=== PATIENT | male | born 1955 | race Caucasian/White ===

== ENCOUNTER → 2018-07-25 07:58 | Outpatient (CLI) | payer OTHER, SELFPAY ==
[2018-07-25 10:48] LABS: Alanine Aminotransferase 59 IU/L (21-72); Albumin 4.1 g/dL (3.5-5.0); Albumin Globulin Ratio 1.5 (1.0-2.8); Alkaline Phosphatase 70 U/L (38-126); Aspartate Aminotransferase 34 IU/L (17-59); Bilirubin Total 0.5 mg/dL (0.2-1.3); Blood Urea Nitrogen 21 mg/dL (9-20); Calcium 8.9 mg/dL (8.4-10.2); Carbon Dioxide 29 mmol/L (22-32); Chloride 102 mmol/L (98-107); Cholesterol 182 mg/dL (140-199); Estimated Glomerular Filt Rate > 60.0 mL/min (>60); Globulin 2.7 g/dL (1.7-4.1); Glucose 104 mg/dL (80-110); HDL Cholesterol 64 mg/dL (40-60); LDL Cholesterol Calculated 105 mg/dL (<100); Sodium 141 mmol/L (137-145); Total Protein 6.8 g/dL (6.3-8.2); Triglycerides 66 mg/dL (35-150)
[2018-07-25 11:37] LABS: HEMOLYSIS 27 (0-50); Prostate Specific Antigen Scrn 0.601 ng/mL (0.1-4.0)
== END ==
PROVIDERS: PCP Internal Medicine; Visit Provider Internal Medicine
DX: E29.1 Testicular hypofunction (principal); M15.0 Primary generalized (osteo)arthritis
CPT/HCPCS: 36415; 80053; 80061; G0103

== ENCOUNTER → 2019-02-16 11:16 | Outpatient (CLI) | payer OTHER, SELFPAY ==
[2019-02-16 13:00] LABS: Add Manual Diff / Slide Review NO; Basophils Absolute Auto 100 /uL (0-100); Basophils Percent Auto 1.3 % (0-2); Eosinophils Absolute Auto 300 /uL (0-450); Eosinophils Percent Auto 4.8 % (2-4); Hematocrit 43.7 % (41-53); Hemoglobin 14.9 g/dL (13.5-17.5); Lymphocytes Absolute Auto 2000 /uL (1100-4500); Lymphocytes Percent Auto 28.1 % (25-40); Mean Corpuscular HGB Conc 34.1 % (30-36); Mean Corpuscular Hemoglobin 32.5 PG (26-34); Mean Corpuscular Volume 95.4 fL (80-100); Monocytes Absolute Auto 800 /uL (0-900); Monocytes Percent Auto 10.6 % (3-14); Neutrophils Absolute Auto 3900 /uL (1500-7000); Neutrophils Percent Auto 55.2 % (50-75); Platelet Count 213 X10^3/uL (150-400); Red Blood Cell Count 4.58 X10^6/uL (4.5-5.9); Red Cell Distribution Width 14.4 % (11.6-14.8); White Blood Cell Count 7.1 X10^3/uL (4.5-11.0)
[2019-02-16 13:11] LABS: HEMOLYSIS < 15 (0-50); Iron 102 ug/dL (49-181)
[2019-02-16 13:21] LABS: Percent Iron Saturation 28 % (20-50); Total Iron Binding Capacity 361 ug/dL (261-462); Transferrin 275 mg/dL (206-381)
== END ==
PROVIDERS: PCP Internal Medicine; Visit Provider Internal Medicine
DX: K62.5 Hemorrhage of anus and rectum (principal)
CPT/HCPCS: 36415; 83540; 83550; 85025

== ENCOUNTER → 2019-03-17 11:54 | Outpatient (CLI) | payer OTHER, SELFPAY ==
--- NOTE | 2019-03-17 14:00 | DIET.PN ---
Dietary Progress Note Assessment: HT: WT: BMI: Labs: Nutrition Diagnosis: Interventions: Monitoring/Evaluations:
--- NOTE | 2019-03-17 14:00 | DIET.PN ---
Dietary Progress Note ASSESS:???63 yom referred for obesity. Pt reports he has met with a dietitian in the past with positive results. Pt recently living with his sister, and reports significant dietary changes. He has tried a low fat diet and cutting down on red meat. States he is looking for overall balance. Current diet high in breads, pastas, and likes sweets. Frequently dines out for lunch. Physical activity has significantly declined as he is now retired and has an Achilles injury. He has a stationary bike at home which he rarely uses. Admits he has just gotten out of a routine. No specific labs of concern, but patient is aware he needs to follow a healthier lifestyle to maintain control of his health. ? LABS: Per pt report:? LDL: 105 HDL: 64 ? MEDS:?? n/a ? DIET: Per 24-hour recall:? B: 2-3 eggs, breakfast meat, toast/bagels/waffles L: Sardines (in oil) on sourdough w/ peaches D: Chicken stir chester w/ 1 cup rice ? Weight: 349 lb Ht:? 74 in BMI: 44.8 ? Exercise:? none at this time. NUTRITION DX 1. Overweight/Obesity related to excessive energy intake, food- and nutrition-related knowledge deficit as evidenced by pt report, overconsumption of high-fat and/or energy dense foods, lack of physical activity, BMI more than normative standards for age and sex (obese class III).? INTERVENTION(s): 1. Discussed caloric/macronutrient needs for ht, wt, activity level and weight loss. Created calorie goal of 2200 (500 calorie deficit for 1 lb/wk weight loss). 2. Discussed the effect of carbohydrates/protein/fat on blood sugar and weight control.? Stressed importance of consistent carbohydrate intake at each meal and provided instructions for recommended servings/portions of carbohydrates/protein per meal. Provided pt with educational material. 3. Reviewed carbohydrate counting and measuring carbohydrate content via servings sizes and reading nutrition labels.? Provided handouts.?? 4. Discussed the difference between simple versus complex carbohydrates and the effect of fiber on blood sugar and cholesterol control.? Discussed various methods to increase fiber content in diet. 5. Stressed importance of meal timing and not going >4-5 hours between meals. Encouraged utilizing the plate method to ensure meals are coming from all food sources. 6. Discussed importance of food preparation to encourage healthy eating, portion control, and prevent hunger/over snacking. 7. Discussed healthy weight loss goals of 1-2lbs per week through diet and exercise.? Pt agreeable to keeping a daily food record including portions. Goals: 1. Pt would like to lose 20 lbs (~5%) body weight in the next 1-2 months through dietary changes. 2. Pt agreed to keep a food record to discuss with RD at follow up appt. 3. Pt will look into getting a gym membership to work with a strainer tender weekly. MONITOR/EVALUATE: Anticipate good compliance.? Nutrition follow-up scheduled for 2 weeks to review food record, monitor weight, and protein/fats and physical activity plan.
== END ==
PROVIDERS: PCP Internal Medicine; Visit Provider Internal Medicine
DX: E66.9 Obesity, unspecified (principal)
CPT/HCPCS: 97802

== ENCOUNTER → 2019-04-01 10:50 | Outpatient (CLI) | payer OTHER, SELFPAY ==
--- NOTE | 2019-04-01 16:19 | DIET.PN ---
Dietary Progress Note Assessment: 63 yom seen for dietary f/u for obesity and weight loss. Pt has been keeping a food record for the past few weeks using my fitness pal to calculate nutrients. He reports it has made him much more aware of his portions and what he is taking in; however it has been challenging keeping track. He has made several changes to dietary habits including switching to egg whites over whole eggs, increasing vegetables, using turkey and chicken over beef, switched to low fat/plain french yogurt. He has not started exercising yet, but plans to sign up for a gym membership this week to start meeting with a development trainer. HT: 74in WT: 343lb (down from 349) BMI: 44 Labs: LDL: 105 HDL: 64 Nutrition Diagnosis: Overweight/Obesity r/t excessive energy intake, food- and nutrition- related knowledge deficit aeb pt report, over-consumption of high-fat and/or energy dense foods, lack of physical activity, BMI more than normative standards for age and sex (obese class III). Interventions: 1. Reviewed food diary. Recommended pt continue to work on staying within recommended calories and be consistent with CHO intake. 2. Discussed ways to make healthier choices when dining out. 3. Discussed importance of PA. Pt will get a gym membership before next visit. 4. Pt would like to bring sister in for next appt for support and so she can understand pt nutritional needs. Monitoring/Evaluations: Nutrition F/U scheduled for 2 weeks to review food record, monitor weight, and discuss pro/fat; this not that.
== END ==
PROVIDERS: PCP Internal Medicine; Visit Provider Internal Medicine
DX: E66.9 Obesity, unspecified (principal)
CPT/HCPCS: 97803

== ENCOUNTER → 2019-04-15 10:57 | Outpatient (CLI) | payer OTHER, SELFPAY ==
--- NOTE | 2019-04-15 16:37 | DIET.PN ---
Dietary Progress Note Assessment: Pt seen for 2nd dietary f/u for obesity and weight management. He is joined today by his sister as she does all of the meal preparation. Most concerns involved portions and maintaining recommended calorie intake. Pt recently purchased protein nutritional supplement to begin making vegetable dense smoothies which was discussed at our prior appt. He joined the local fitness center and has committed to meeting with her 2x/wk for the next 6 mo while biking every other day in between. He recently had new labs done which were reviewed and discussed. HT: 74 WT:341 (original 349) BMI: 43.8 Labs: (03/24/19) Gluc: 97 TC: 200 T LDL: 128 HDL: 60 Nutrition Diagnosis: Overweigh/Obesity r/t excessive energy intake, food- and nutrition-related knowledge deficit aeb pt report, over consumption of high-fat and/or energy dense foods, lack of physical activity, BMI more than normative standards for age and sex (obese class III). Interventions: 1. Review calorie and macronutrient goals and materials from previous appts with sister. 2. Discussed protein goal. Reviewed animal vs plant based options as well as low, med, and high fat meats. 3. Reviewed fats effect on glucose, weight, heart disease, and cholesterol. Discussed saturated vs. unsaturated fats. 4. Reviewed sugar subs, sodium, grocery shopping guidelines, eating away from home, and health claims. Monitoring/Evaluations: F/u scheduled for 1 mo post endoscopy to review previous topics, questions/concerns, monitor weight.
== END ==
PROVIDERS: PCP Internal Medicine; Visit Provider Internal Medicine
DX: E66.9 Obesity, unspecified (principal)
CPT/HCPCS: 97803

== ENCOUNTER → 2019-04-23 10:15 | Outpatient (CLI) | payer OTHER, SELFPAY ==
--- NOTE | 2019-04-23 | DI.RAD.S_ITS ---
PROCEDURE: XR CALCANEOUS RT MIN 2V INDICATIONS: ACHILLES TENDONITIS, RIGHT TECHNIQUE: Two views of the calcaneus were acquired. COMPARISON: None. FINDINGS: Bones: No fractures or dislocations. No suspicious bony lesions. Plantar and posterior calcaneal spurring. Tibiotalar degenerative joint disease. Diffuse hindfoot degenerative subchondral sclerosis and spurring Soft tissues: No suspicious calcifications. Achilles tendon appears mildly thickened. IMPRESSION: Prominent posterior and plantar calcaneal spurring. Diffuse hindfoot joint degeneration. Dictated by: Lewis Ferguson M.D. on 04/23/2019 at 11:35 Approved by: Lewis Ferguson M.D. on 04/23/2019 at 11:36
--- NOTE | 2019-04-23 | DI.RAD.S_ITS ---
PROCEDURE: XR ANKLE RT MIN 3V INDICATIONS: ACHILLES TENDONITIS, RIGHT TECHNIQUE: 3 views of the ankle were acquired. COMPARISON: None. FINDINGS: Bones: No fractures or dislocations. Ankle mortise is normally aligned. No suspicious bony lesions. Posterior and plantar calcaneal spurring. No pes planus. Tibiotalar degenerative changes Soft tissues: No tibiotalar joint effusion. Achilles tendon appears normal. IMPRESSION: No pes planus. Prominent posterior and plantar calcaneal spurring. Diffuse hindfoot joint degeneration. Dictated by: Lewis Ferguson M.D. on 04/23/2019 at 11:36 Approved by: Lewis Ferguson M.D. on 04/23/2019 at 11:37
== END ==
PROVIDERS: Family Provider Internal Medicine; PCP Internal Medicine; Visit Provider Podiatrist
DX: M76.61 Achilles tendinitis, right leg (principal); M77.31 Calcaneal spur, right foot; M19.071 Primary osteoarthritis, right ankle and foot
CPT/HCPCS: 73610; 73650

== ENCOUNTER 2019-05-06 13:22 | Day surgery (SDC) | payer OTHER, SELFPAY ==
--- NOTE | 2019-05-06 | PATH_ITS ---
[facility] Accession Number: [id number] . 01 Material submitted: . PART A: colon - DESCENDING COLON POLYP PART B: colon - SIGMOID COLON POLYP . 02 Diagnosis: A. Biopsy, Polyp Descending Colon: Tubular adenoma involving single biopsy fragment. . B. Biopsy, Sigmoid Colon Polyp: Hyperplastic polyp. MRV/05/08/2019 . 02 Electronically signed: . Hernan Alva MD, Pathologist NPI- [id number] . 01 Gross description: . Part A: DESCENDING COLON POLYP: Received in formalin are multiple fragment(s) of gee, soft tissue measuring 0.2 x 0.1 x 0.1 cm in aggregate submitted entirely in 1 cassette(s) Part B: SIGMOID COLON POLYP: Received in formalin is 1 fragment(s) of gee, soft tissue measuring 0.3 x 0.3 x 0.3 cm submitted entirely in 1 cassette(s) /CKI /CKI . 02 Pathologist provided ICD-10: D12.4 . 02 CPT . 861244, [id number] Performed at: 01 [facility] [address] [facility], [place], [place] [id number] MD Lonnie Castellanos MD Phone: [phone] Performed at: 02 [facility] [address] [place], [place] [id number] MD Ksenia Camilo MD Phone: [phone]
[2019-05-06 14:06] VITALS: BP 140/86; PULSE 79; RESP 16; TEMP 36.1; O2SAT 97; BMI 41.5
[2019-05-06] MEDS: SODIUM CHLORIDE 0.9% 1,000 ML 42 ML IV (14:17)
--- NOTE | 2019-05-06 14:50 | P.HP_ITS ---
History of Present Illness History of Present Illness Date Patient Seen: 05/06/19 Time Patient Seen: 14:50 Chief complaint: [id number] Narrative: Possible history of Kim's esophagus and need for colorectal cancer screening due to father with colon cancer. Patient History Medical History (Updated 05/06/19 @ 14:13 by Jess Woodall, RN) Abdominal pain (Acute) Achilles tendonosis of right lower extremity (Acute) Arthritis (Acute) Barretts esophagus (Acute) BPH (benign prostatic hyperplasia) (Acute) GERD (gastroesophageal reflux disease) (Acute) Hematochezia (Acute) Joint pain (Acute) Obese (Acute) Vertigo (Acute) Weak urinary stream (Acute) Surgical History (Updated 05/06/19 @ 13:41 by Jess Woodall RN) H/O knee surgery (Acute) History of colonoscopy (Acute ~2011) Social History household members: family Family & Social History Social History: household members family Meds Home Medications and Allergies Home Medications Medication Instructions Recorded Confirmed Type ascorbic acid (vitamin C) [Vitamin 1,000 mg PO DAILY 05/06/19 05/06/19 History C] diclofenac sodium [Voltaren] g TOPICAL QID 05/06/19 History finasteride 5 mg PO DAILY 05/06/19 05/06/19 History vxfoqywgqbh-rkymw-qms-vit C-Mn 2 tab PO DAILY 05/06/19 05/06/19 History meloxicam 15 mg PO DAILY PRN 05/06/19 05/06/19 History omeprazole 20 mg PO DAILY 05/06/19 05/06/19 History tamsulosin 0.4 mg PO DAILY 05/06/19 05/06/19 History Allergies Allergy/AdvReac Type Severity Reaction Status Date / Time penicillin V Allergy Severe Unlisted Verified 05/06/19 13:57 sulfadiazine Allergy Severe [place] Verified 05/06/19 13:57 Exam Vital Signs (past 8 hours): - 05/06/19 14:06 Temperature 96.9 F L Pulse Rate 79 Respiratory Rate 16 Blood Pressure 140/86 Pulse Oximetry 97 Oxygen Delivery Method Room Air Narrative Exam Narrative: Oropharynx free of lesions Chest clear to auscultation percussion Cardiac exam reveals no S3 or murmur Assessment & Plan Assessment & Plan narrative: History of Kim's esophagus though with 2- endoscopies after the initial diagnosis. Need to rule out Kim's esophagus in carefully pay attention to the top of the G folds Family history of colon cancer in a first-degree relative need for 5 year follow-up colonoscopy Risks, benefits, alternatives have been explained. Further recommendations will follow with the results of the studies.
--- NOTE | 2019-05-06 15:28 | PM.OP.ENDO ---
Operative Date/Time/Diagnoses Date of procedure: 05/06/19 Time of procedure: 15:28 Pre-op diagnosis: See indication and findings Procedure & Clinicians Study performed: EGD and colonoscopy Same procedure as scheduled: Yes Indications: History of Kim's esophagus though present only on 1st endoscopy with 2 follow-up endoscopy is being negative. Rule out Kim's esophagus. Also need for colorectal cancer screening. Anesthesia assistance necessary due to obesity and airway issues Surgeon: Chris Summers Procedure Notes Procedure in detail: After informed consent was obtained the patient was placed in left lateral decubitus position. The video upper scope was placed into the oropharynx and with the patient's help swallowed into the esophagus. The esophagus, stomach and duodenum were carefully examined. On withdrawal retroflexed view the GE junction was performed. The scope was removed. The patient tolerated procedure well. The patient was then turned and the colonoscope substituted. This was placed in the rectum slowly advanced to the cecum. Preparation was good. On slow withdrawal mucosa was carefully examined. The scope was removed. The patient tolerated the procedure well. Blood loss none Complications none Sedation MAC Findings EGD 1. No evidence of Kim's esophagus. On multiple photos, there are no irregularities above the the top level of the GE folds. 2. Normal stomach 3. Normal duodenal bulb and sweep Colonoscopy 1. Two 3 4 mm descending colon polyps both Jumbo biopsy removed completely 2. 4 mm sessile polyp in the sigmoid colon Jumbo biopsy removed completely 3. Otherwise negative colonoscopy to cecum We will let very know about the pathology results and whether he needs to come back in 5 years. I do think however that he should stop screening for Kim's esophagus his this is now the 3rd negative study. No further follow-up was warranted.
[2019-05-06 15:57] VITALS: BP 119/80; PULSE 70; RESP 16; O2SAT 96
[2019-05-06 16:02] VITALS: BP 118/83; PULSE 62; RESP 16; O2SAT 97
[2019-05-06 16:07] VITALS: BP 113/69; PULSE 65; RESP 16; O2SAT 96
[2019-05-06 16:30] VITALS: BP 125/79; PULSE 64; RESP 17; TEMP 36.3; O2SAT 95
== END 2019-05-06 16:45 | disposition home or self-care (01) ==
PROVIDERS: PCP Internal Medicine; Visit Provider Internal Medicine Gastroenterology
PROC: 0DJ08ZZ Inspection of Upper Intestinal Tract, Via Natural or Artificial Opening Endoscopic (ICD-10-PCS; CPT 43235; principal; 2019-05-06 15:00)
PROC: 0DJD8ZZ Inspection of Lower Intestinal Tract, Via Natural or Artificial Opening Endoscopic (ICD-10-PCS; CPT 45378; 2019-05-06 15:00)
DX: Z12.11 Encounter for screening for malignant neoplasm of colon (principal); Z80.0 Family history of malignant neoplasm of digestive organs; K21.9 Gastro-esophageal reflux disease without esophagitis; N40.0 Benign prostatic hyperplasia without lower urinary tract symptoms; E66.9 Obesity, unspecified; Z68.41 Body mass index [BMI] 40.0-44.9, adult; D12.4 Benign neoplasm of descending colon
CPT/HCPCS: 45380; 43235; J2250; J2704; J3010

== ENCOUNTER → 2019-05-13 10:53 | Outpatient (CLI) | payer OTHER, SELFPAY ==
--- NOTE | 2019-05-13 15:26 | DIET.PN ---
Dietary Progress Note Assessment: Pt seen for 3rd Dietary F/U for obesity and weight management. He has been very consistent with activity and watching his portions, but is disappointed in lack of weight loss. Recent procedure required he follow a low fiber diet for several days. He is finding it challenging to meet his recommended daily fiber intake since then. His biggest concern is translating nutrition education to real life meals. He is much more optimistic about his level of activity and making better choices when dining out. HT: 74 WT: 343 BMI: 44 Nutrition Diagnosis: Overweight/Obesity r/t excessive energy intake, food- and nutrition- related knowledge deficit aeb pt report, over consumption of high-fat and/or energy dense foods, lack of physical activity, BMI more than normative standards for age and sex (Obese class III). Interventions: 1. Discussed in detail importance of fiber, amount needed, and sources. Created list of high fiber foods to consume throughout the day and avoid over-consumption of calorie dense foods. 2. Discussed ways to create meals that include high fiber foods such as vegetable, nuts, and seeds. 3. Explained the effect of exercise in create lean body mass and acute water retention that could effect daily weight. 4. Pt agreed to cut out starch (particularly bagels) for the next 30 days. Monitoring/Evaluations: Monitor weight; provide list of snack/meal ideas that promote nutritionally dense options at reduced calories.
== END ==
PROVIDERS: PCP Internal Medicine; Visit Provider Internal Medicine
DX: E66.9 Obesity, unspecified (principal); Z68.41 Body mass index [BMI] 40.0-44.9, adult
CPT/HCPCS: 97803

== ENCOUNTER → 2019-06-02 10:52 | Outpatient (CLI) | payer OTHER, SELFPAY ==
--- NOTE | 2019-06-02 13:58 | DIET.PN ---
Dietary Progress Note Assessment: Mr Reyez was seen for his 4th dietary F/U for obesity and weight management. He is accompanied by his sister who has several questions regarding recipes and reading food labels as she is the primary cook. Nic continues to increase his vegetable intake and accepted a 30 day challenge to avoid added sugar and enriched starches. He continues to meet with his hardware trainer 1 day/week, but admits he has not been as active as he should on the alternate days which we have discussed in prior appointments. He states he is less concerned with his weight as he is feeling better, less fatigued, and is feeling more positive with his dietary choices. HT: 74 WT: 339 UBW: 349 BMI: 43.5 Nutrition Diagnosis: Overweight/Obesity r/t excessive energy intake aeb pt report, over consumption of high-fat and/or energy dense foods, lack of physical activity, BMI more than normative standards for age and sex (obese class III). Interventions: 1. Reviewed label reading including total carbs, added sugar, fiber, and sat fat. 2. Reviewed important of looking at ingredients including breads made with whole grain/whole wheat rather than enriched flours. 3. Provided list of healthful snacks under 200 della. 4. Discussed intermittent fasting, benefits and challenges, and how to get started. 5. Recommended adding 30 min of cardiovascular or resistant training 3-4 days/week. Monitoring/Evaluations: Monitor weight, challenges with topics previously discussed.
== END ==
PROVIDERS: PCP Internal Medicine; Visit Provider Internal Medicine
DX: E66.9 Obesity, unspecified (principal); Z68.41 Body mass index [BMI] 40.0-44.9, adult
CPT/HCPCS: 97803

== ENCOUNTER → 2019-06-16 14:16 | Outpatient (CLI) | payer OTHER, SELFPAY ==
[2019-06-16 15:36] LABS: Prostate Specific Antigen 0.356 ng/mL (0.10-4.00)
== END ==
PROVIDERS: PCP Internal Medicine; Visit Provider Urology
DX: R97.20 Elevated prostate specific antigen [PSA] (principal)
CPT/HCPCS: 36415; 84153

== ENCOUNTER → 2019-07-08 10:20 | Outpatient (CLI) | payer OTHER, SELFPAY ==
--- NOTE | 2019-07-08 15:40 | DIET.PN ---
Dietary Progress Note Assessment: Mr Serrato was seen for his 5th dietary F/U for obesity and weight management. We continues to avoid most white products, but is starting to add some potatoes and rice back into his diet. He and his sister appear somewhat bored with the vegetables they have been trying to include and may be falling back into some old habits. He has not lost weight, but is happy to report inches lost around his chest and midsection. He is now working with his application trainer 2x/wk, but admits he is not doing any activity outside of that. He complains he is too sore for days after his sessions and his knees are beginning to bother him. He will be leaving for a 2 week vacation over the holidays and is worried about maintaining his weight, dietary changes and activity. HT: 74 WT: 344 UBW: 349 BMI: 44.2 Measurements: Reports 5 lost in waist and 1 around chest Nutrition Diagnosis: Overweight/Obesity r/t excessive energy intake aeb pt report, over consumption of high-fat and/or energy dense foods, lack of physical activity, BMI more than normative standards for age and sex (obese class III). Interventions: 1. Discussed alternative vegetable options to avoid boredom. 2. Reviewed portion sizes of starches/ carbohydrates. Reminded pt these are acceptable in moderate amounts. 3. Discussed holiday eating and ways to prevent over eating. Discussed the hunger scale and listening to when you body is satisfied. 5. Discussed PA. Encourage Nic to add 30 min of cardiovascular 3-4 days/ wk alternating days he does not meet with his application trainer. Discussed barriers and benefits. Pt agrees to ride the bike for 15 min before and after his training sessions at the gym and ride his bike at home for 30 min on alternate days. Monitoring/Evaluations: Monitor weight, challenges with the holidays/being on vacation, topics previously discussed.
== END ==
PROVIDERS: PCP Internal Medicine; Visit Provider Internal Medicine
DX: E66.9 Obesity, unspecified (principal); Z68.41 Body mass index [BMI] 40.0-44.9, adult; Z71.3 Dietary counseling and surveillance
CPT/HCPCS: 97803

== ENCOUNTER → 2019-09-16 10:49 | Outpatient (CLI) | payer OTHER, SELFPAY ==
--- NOTE | 2019-09-16 12:57 | DIET.PN ---
Nutrition Initial Assessment:? ASSESS:???Mr Serrato was seen for his 6th dietary follow up for obesity and weight management. He admits he was reluctant to attend this visit as he did not apply any of our previously discussed nutritional changes over the holidays. He was traveling for nearly 3 weeks and reports eating out every meal. Although we discussed ways to stay on track with eating and exercise, he found this challenging. Since our last visit he has developed neuroma in his foot and is experiencing shoulder pain, which he is attending physical therapy for. Since his return, he has gone back to eating vegetables and grains with lean protein for most meals. He reports difficulty with breakfast foods and continues to experience boredom with choosing healthy side dishes. He has attended the fitness center a few times and plans to start back with his clinical provider trainer in the next week. ? Weight: 342 ? Exercise:? physical therapy; personal financial representative 2x/wk NUTRITION DX 1. Overweight/Obesity related to excessive energy intake, food- and nutrition-related knowledge deficit as evidenced by pt report, overconsumption of high-fat and/or energy dense foods, lack of physical activity, BMI more than normative standards for age and sex (obese class III).? INTERVENTION(s): 1. Reviewed dietary and activity habits over the holidays. Discussed barriers to maintaining eating plan. 2. Discussed breakfast ideas to provide adequate protein and carbohydrate while staying within calorie recommendations. 3. Discussed possibility of signing up for a local [facility]-supported agriculture to provide new ideas on produce to avoid boredom. 4. Discussed barriers to activity. Patient has requested communication between this RD and his clinical provider trainer and PT. Goals: 1. Pt plans to sign up for [facility] to receive local, seasonal produce to help avoid boredom. 2. Pt will go back to limiting starchy foods and sugar sweetened beverages and replace sweets with fruit. MONITOR/EVALUATE: Anticipate good compliance.? Nutrition follow-up scheduled for 6 weeks to monitor weight, food record, and physical activity
== END ==
PROVIDERS: PCP Internal Medicine; Visit Provider Internal Medicine
DX: E66.9 Obesity, unspecified (principal); Z71.3 Dietary counseling and surveillance
CPT/HCPCS: 97803

== ENCOUNTER → 2019-10-27 10:56 | Outpatient (CLI) | payer OTHER, SELFPAY ==
--- NOTE | 2019-10-27 12:32 | DIET.PN ---
Nutrition Initial Assessment:? ASSESS:???Mr. Serrato was seen for his 7th dietary follow up for obesity and weight management. He reports increased activity with improvement in his Achilles and shoulder pain. He continues to meet with his personal service workers 2x/wk and is continuing physical therapy. He continues to struggle with motivation to exercise on alternate days. Since returning from his vacation he has gone back to limiting processed foods and white starches. However continues to dine out several times per week. He has set a goal to follow the 80/20 rule. He presents overall disappointed in not meeting his weight loss goals, but is happy to feel better, move better, and feels confident he is making steps in the right direction. ? Weight: 351 lb Ht:? 74 in BMI: 45 ? Exercise:? physical therapy; personal service workers 2x/wk NUTRITION DX 1. Overweight/Obesity related to excessive energy intake, food- and nutrition-related knowledge deficit as evidenced by pt report, overconsumption of high-fat and/or energy dense foods, lack of physical activity, BMI more than normative standards for age and sex (obese class III).? INTERVENTION(s): 1. Pt will follow the 80/20 rule for making dietary choices. 2. Pt will include 2 extra days of exercise (cardio at the gym) outside of his personal service workers. 3. Pt will request follow up labs to assess health status. MONITOR/EVALUATE: No follow up scheduled at this time
== END ==
PROVIDERS: PCP Internal Medicine; Referring Provider Internal Medicine; Visit Provider Internal Medicine
DX: E66.01 Morbid (severe) obesity due to excess calories (principal); Z68.42 Body mass index [BMI] 45.0-49.9, adult; Z71.3 Dietary counseling and surveillance
CPT/HCPCS: 97803

== ENCOUNTER → 2020-02-08 08:15 | Outpatient (CLI) | payer MEDICARE, OTHER, SELFPAY ==
[2020-02-08 09:14] LABS: Alanine Aminotransferase 44 IU/L (<50); Albumin Globulin Ratio 1.3 (1.0-2.8); Alkaline Phosphatase 72 U/L (38-126); Aspartate Aminotransferase 31 IU/L (17-59); BUN Creatinine Ratio 27.5 (6-22); Bilirubin Total 0.4 mg/dL (0.2-1.3); Blood Urea Nitrogen 19 mg/dL (9-20); Calcium 9.1 mg/dL (8.4-10.2); Carbon Dioxide 27 mmol/L (22-32); Chloride 105 mmol/L (98-107); Cholesterol 190 mg/dL (140-199); Estimated Glomerular Filt Rate > 60.0 mL/min (>60); Glucose 102 mg/dL (80-110); HDL Cholesterol 57 mg/dL (40-60); HEMOLYSIS < 15 (0-50); LDL Cholesterol Calculated 123 mg/dL (<100); Potassium 4.6 mmol/L (3.4-5.1); Sodium 139 mmol/L (137-145); Triglycerides 50 mg/dL (35-150)
== END ==
PROVIDERS: PCP Internal Medicine; Referring Provider Internal Medicine; Visit Provider Internal Medicine
DX: E66.9 Obesity, unspecified (principal); E78.2 Mixed hyperlipidemia; M15.0 Primary generalized (osteo)arthritis
CPT/HCPCS: 36415; 80053; 80061

== ENCOUNTER → 2020-04-08 09:59 | Outpatient (CLI) | payer MEDICARE, OTHER, SELFPAY ==
[2020-04-09 18:42] LABS: COVID19 Sendout Not Detected (Not Detect)
== END ==
PROVIDERS: PCP Internal Medicine; Visit Provider Physician Assistant
DX: Z11.59 Encounter for screening for other viral diseases (principal)
CPT/HCPCS: 87635

== ENCOUNTER → 2020-04-11 15:07 | Outpatient (CLI) | payer MEDICARE, OTHER, SELFPAY ==
--- NOTE | 2020-04-11 16:02 | PM.TREADMILL ---
Cardiac Stress Test Report Referral & Results Date Patient Seen: 04/11/20 Time Patient Seen: 16:02 Requesting provider: Brook Schulz Indication: Syncope and collapse Rest ECG: Sinus rhythm Procedure Note: STANDARD JARRET PROTOCOL, 5:01, 7.0 METS REDUCED EXERCISE CAPACITY, CUBA +31% EARLY HEART RATE RESPONSE TO EXERCISE WITH TARGET ACHIEVED AT 1:46 NORMAL BLOOD PRESSURE RESPONSE TO EXERCISE NO CHEST PAIN OR ANGINAL SYMPTOMS NO ST SHIFTS. RARE PVCS. PRINTED CIRCUIT BOARDS CONTACT PRINTER REVIEW PENDING JAIDA FLORES Impression: ETT WITHOUT ISCHEMIA Please note: Actual ECG tracings can be found in the PACS system.
== END ==
PROVIDERS: PCP Internal Medicine; Referring Provider Student in an Organized Health Care Education/Training Program; Visit Provider Student in an Organized Health Care Education/Training Program
DX: R55 Syncope and collapse (principal)
CPT/HCPCS: 93017

== ENCOUNTER → 2020-04-18 08:22 | Outpatient (CLI) | payer MEDICARE, OTHER, SELFPAY ==
[2020-04-18 09:15] LABS: Cholesterol 139 mg/dL (140-199); HDL Cholesterol 59 mg/dL (40-60); LDL Cholesterol Calculated 66 mg/dL (<100); Triglycerides 69 mg/dL (35-150)
== END ==
PROVIDERS: PCP Internal Medicine; Referring Provider Internal Medicine; Visit Provider Internal Medicine
DX: E78.2 Mixed hyperlipidemia (principal)
CPT/HCPCS: 36415; 80061

== ENCOUNTER → 2020-12-01 10:29 | Outpatient (CLI) | payer MEDICARE, OTHER, SELFPAY ==
[2020-12-01 11:49] LABS: Prostate Specific Antigen Scrn 0.548 ng/mL (0.1-4.0)
[2020-12-01 16:38] LABS: Hep C Virus Ab w/Reflex Quant NEGATIVE s/c (NEGATIVE)
== END ==
PROVIDERS: PCP Internal Medicine; Referring Provider Internal Medicine; Visit Provider Internal Medicine
DX: Z00.00 Encounter for general adult medical examination without abnormal findings (principal); Z12.5 Encounter for screening for malignant neoplasm of prostate
CPT/HCPCS: 36415; 86803; G0103

== ENCOUNTER → 2021-06-07 10:57 | Outpatient (CLI) | payer MEDICARE, OTHER, SELFPAY ==
[2021-06-07 12:20] LABS: Prostate Specific Antigen 0.361 ng/mL (0.10-4.00)
== END ==
PROVIDERS: PCP Internal Medicine; Referring Provider Physician Assistant; Visit Provider Physician Assistant
DX: N40.0 Benign prostatic hyperplasia without lower urinary tract symptoms (principal)
CPT/HCPCS: 36415; 84153

== ENCOUNTER → 2022-08-06 14:23 | Outpatient (CLI) | payer MEDICARE, OTHER, SELFPAY ==
--- NOTE | 2022-08-06 14:40 | DIET.CONS ---
Dietary Consultation Note Assessment: 66y M attending RD visit for help with weight management with signed ABN form. Pt with pmhx GERD who has worked with RDs in past to various degrees of success. Pt attending visit today with sister whom he lives with and who does the shopping and cooking. Pt reports usual intake of two meals daily, occasionally snack. Pt with no regular physical activity. Usual Day: B: two eggs, breakfast meat, 1 slice toast, coffee c sugar alternative and creamer or twice per week oatmeal c banana and pb Late Lunch or Dinner: chicken, ground turkey, fish with rice or potato with veggies. Pt likes veggies but gets bored with how they are prepared. Mix of frozen and fresh veggies- broccoli, asparagus steamed or roasted, corn, salads rarely snacking doesn't mind leftovers has cut down on beef, tries to limit pasta weakness is take out food soups and stews in winter time Ht: 72 Wt: 360# BMI: 46.2 Pt reports weight gain while working on nutrition and fitness in past, even with personal finance instructor. Nutrition Diagnosis: class 3 obesity r/t sarcopenia and hx yoyo dieting aeb pt with BMI 46.2, pt has high level visible fat mass despite diet of 2 meals/d, pt with no intentional physical activity. Interventions: 1. To support healthy weight, discussed role of yoyo dieting in reduced metabolic rate and excessive fat mass. Educated pt on role of plate balance for weight management. Using food models, built and corrected a variety of meals pt would eat to fit plate balance. 2. To support pts desire to eat increased vegetables, provided resource of [employer] and how to search for veggie sides. Pts sister has goal of learning 5 ways to prepare each veggie they commonly eat. 3. Collaborated c pt and sister on meal composition and tips for eating out. 4. To support increased muscle mass, provided resource of [employer] for simple strength training and encouraged pt to combine stationary bike with reading his favorite books. Pt unable to read the book unless on the bike. EER: 2,000kcals Monitoring/Evaluations: f/u prn Electronically Signed by: Laurie Gee 08/06/22 14:40 Clinical Dietitian [address] [address]
[2022-08-06 15:16] VITALS: BMI 46.2
== END ==
PROVIDERS: PCP Student in an Organized Health Care Education/Training Program; Referring Provider Student in an Organized Health Care Education/Training Program; Visit Provider Student in an Organized Health Care Education/Training Program
DX: E66.01 Morbid (severe) obesity due to excess calories (principal); M62.84 Sarcopenia; Z68.42 Body mass index [BMI] 45.0-49.9, adult; Z71.3 Dietary counseling and surveillance
CPT/HCPCS: 97802

== ENCOUNTER → 2022-11-01 14:07 | Outpatient (CLI) | payer MEDICARE, OTHER, SELFPAY ==
[2022-11-01 16:13] LABS: Prostate Specific Antigen 0.326 ng/mL (0.10-4.00)
== END ==
PROVIDERS: PCP Student in an Organized Health Care Education/Training Program; Referring Provider Specialist; Visit Provider Specialist
DX: N40.1 Benign prostatic hyperplasia with lower urinary tract symptoms (principal); N13.8 Other obstructive and reflux uropathy
CPT/HCPCS: 36415; 84153

== ENCOUNTER → 2023-06-25 14:30 | Outpatient (CLI) | payer MEDICARE, OTHER, SELFPAY ==
--- NOTE | 2023-06-25 | DI.RAD.S_ITS ---
PROCEDURE: XR KNEE RT 1TO2V INDICATIONS: KNEE PAIN TECHNIQUE: 2 views of the knee were acquired. COMPARISON: None. FINDINGS: Bones: No acute fractures or dislocations. No suspicious bony lesions. Moderate severe joint space narrowing is seen at the lateral femorotibial compartment. There is moderate medial and anterior compartment joint space narrowing. Tricompartmental marginal osteophytes are present. Soft tissues: No joint effusion. Possible ossified intra-articular loose body projecting likely posterior to the medial femorotibial compartment. 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 Approved by: Brennen Pathak M.D. on 06/25/2023 at 16:50
--- NOTE | 2023-06-25 | DI.RAD.S_ITS ---
PROCEDURE: XR SHOULDER LT MIN 2V INDICATIONS: SHOULDER PAIN TECHNIQUE: 3 views of the shoulder were acquired. COMPARISON: None. FINDINGS: Bones: No acute fractures or dislocations. No suspicious bony lesions. Visualized ribs appear intact. Mild to moderate degenerative changes are seen at the acromioclavicular joint and at the glenohumeral joint. Soft tissues: No suspicious soft tissue calcifications. IMPRESSION: Mild to moderate glenohumeral and acromioclavicular osteoarthrosis. Approved by: Brennen Pathak M.D. on 06/25/2023 at 16:51
--- NOTE | 2023-06-25 | DI.RAD.S_ITS ---
PROCEDURE: XR KNEE LT 1TO2V INDICATIONS: KNEE PAIN TECHNIQUE: 2 views of the knee were acquired. COMPARISON: None. FINDINGS: Bones: No acute fractures or dislocations. No suspicious bony lesions. Severe joint space narrowing is seen at the lateral femorotibial compartment with subchondral sclerosis, marginal osteophyte formation, and mild remodeling of the lateral tibial plateau articular surface. There is moderate narrowing of the medial femorotibial compartment joint space and likely at least moderate narrowing of the patellofemoral compartment joint space. Soft tissues: No joint effusion. No suspicious soft tissue calcifications. IMPRESSION: Tricompartmental osteoarthrosis, most notably and severe at the lateral femorotibial compartment. Approved by: Brennen Pathak M.D. on 06/25/2023 at 16:48
== END ==
PROVIDERS: PCP Student in an Organized Health Care Education/Training Program; Referring Provider Student in an Organized Health Care Education/Training Program; Visit Provider Student in an Organized Health Care Education/Training Program
DX: M25.512 Pain in left shoulder (principal); M25.561 Pain in right knee; M25.562 Pain in left knee; M19.012 Primary osteoarthritis, left shoulder; M17.0 Bilateral primary osteoarthritis of knee
CPT/HCPCS: 73030; 73560

== ENCOUNTER → 2023-11-05 13:56 | Outpatient (CLI) | payer MEDICARE, OTHER, SELFPAY ==
[2023-11-05 15:53] LABS: Prostate Specific Antigen 0.329 ng/mL (0.10-4.00)
== END ==
PROVIDERS: PCP Student in an Organized Health Care Education/Training Program; Referring Provider Specialist; Visit Provider Specialist
DX: N40.1 Benign prostatic hyperplasia with lower urinary tract symptoms (principal); N13.8 Other obstructive and reflux uropathy
CPT/HCPCS: 36415; 84153

== ENCOUNTER → 2024-01-04 08:33 | Outpatient (CLI) | payer MEDICARE, OTHER, SELFPAY ==
[2024-01-04 09:19] LABS: Hemoglobin A1C% w Est Avg Glu 6.6 % (4.0-6.0)
[2024-01-04 09:28] LABS: HEMOLYSIS < 15 (0-50); Iron 117 ug/dL (49-181)
[2024-01-04 09:30] LABS: Glucose 105 mg/dL (80-110)
[2024-01-04 09:39] LABS: Percent Iron Saturation 35 % (20-50); Total Iron Binding Capacity 339 ug/dL (261-462); Transferrin 253 mg/dL (206-381)
[2024-01-04 09:45] LABS: Vitamin D 25 Hydroxy (D3) 58.2 ng/mL (30.0-100.0)
[2024-01-04 09:58] LABS: TSH w/ Reflex to FT4 3.23 uIU/mL (0.47-4.68)
[2024-01-04 10:03] LABS: Ferritin 52 ng/mL (18-464)
[2024-01-04 10:18] LABS: Vitamin B12 698 pg/mL (239-931)
== END ==
PROVIDERS: PCP Student in an Organized Health Care Education/Training Program; Referring Provider Student in an Organized Health Care Education/Training Program; Visit Provider Student in an Organized Health Care Education/Training Program
DX: E78.2 Mixed hyperlipidemia (principal); E55.9 Vitamin D deficiency, unspecified; E66.01 Morbid (severe) obesity due to excess calories; R40.0 Somnolence
CPT/HCPCS: 36415; 82306; 82607; 82728; 82947; 83036; 83540; 83550; 84443

== ENCOUNTER 2024-08-13 09:16 | Day surgery (SDC) | payer MEDICARE, OTHER, SELFPAY ==
[2024-08-13 10:23] VITALS: BP 134/86; PULSE 78; RESP 18; TEMP 36.4; O2SAT 97
--- NOTE | 2024-08-13 10:32 | PM.HP.1 ---
History of Present Illness History of Present Illness Date Patient Seen: 08/13/24 Time Patient Seen: 10:32 Chief complaint: [facility] Narrative: Nic is a 68 year old man who presents for a colonoscopy. His last colonoscopy was with Dr. Tompkins in 2019 and a tubular adenoma was removed. His father had colon cancer in his 50s. [facility] Medical History BPH w urinary obs/LUTS Achilles tendonosis of right lower extremity Arthritis Hematochezia Obese Joint pain Weak urinary stream Abdominal pain Vertigo BPH (benign prostatic hyperplasia) Barretts esophagus GERD (gastroesophageal reflux disease) Surgical History H/O knee surgery History of colonoscopy (~2011) Social History household members: family Smoking Status: Never smoker alcohol intake: never Meds Home Medications and Allergies Home Medications Medication Instructions Recorded Confirmed Type ascorbic acid (vitamin C) 1,000 mg 1,000 mg PO DAILY 05/06/19 08/13/24 History tablet (Vitamin C) finasteride 5 mg tablet 5 mg PO DAILY 05/06/19 08/13/24 History wzrflldkeae-xdhgc-voc-vit C-Mn 500 2 tab PO DAILY 05/06/19 08/13/24 History mg-400 mg-166.6 mg tablet omeprazole 20 mg capsule,delayed 20 mg PO DAILY 05/06/19 08/13/24 History release tamsulosin 0.4 mg capsule 0.4 mg PO DAILY 05/06/19 08/13/24 History atorvastatin 20 mg PO DAILY 03/18/20 08/13/24 History turmeric 400 mg capsule mg PO 11/14/23 11/14/23 History Allergies Allergy/AdvReac Type Severity Reaction Status Date / Time penicillin V Allergy Severe Unlisted Verified 08/01/22 11:12 sulfadiazine Allergy Severe [place] Verified 08/01/22 11:12 Quinolones AdvReac Unknown Joint Pain Verified 08/13/24 10:15 Exam Vital Signs (past 8 hours): - 08/13/24 10:23 Temperature 97.6 F Pulse Rate 78 Respiratory Rate 18 Blood Pressure 134/86 Pulse Oximetry 97 Oxygen Delivery Method Room Air Oxygen Delivery Method Room Air Const Nutritional Appearance: obese Assessment & Plan Assessment and plan (1) History of colon polyps: Status: Acute (2) Family history of colon cancer: Status: Acute Plan We should proceed with a colonoscopy for personal history of adenomatous polyps and family history of colon cancer. Time-Based Coding :: [TOTAL MINUTES] spent with patient and on the chart (including review of chart, obtaining history, exam, reviewing outside data, placing orders, documenting exam and treatment plan, and counseling patient) on [DATE].
--- NOTE | 2024-08-13 11:25 | PM.OP.COLON ---
Operative Date/Time/Diagnoses Date of procedure: 08/13/24 Time of procedure: 11:25 Pre-op diagnosis: History of colon polyps Post-op diagnosis: same Procedure & Clinicians Study performed: Colonoscopy Same procedure as scheduled: Yes Surgeon: Garland Armendariz Procedure Notes Procedure in detail: Surgeon: Garland Armendariz MD Anesthesia: Tamika Hardy CRNA Procedure: The patient was brought to the endoscopy suite, placed in left lateral decubitus position. The patient was connected to monitoring devices. A time-out was performed. Sedation was administered. Once the patient was adequately sedated, a digital rectal exam was performed and was normal. The scope was then inserted and advanced to the cecum where the appendiceal orifice was identified and photographed. The scope was then slowly withdrawn over greater than 6 minutes. The mucosa was thoroughly inspected. No abnormalities were identified. The scope was retroflexed in the rectum. The scope was straightened and removed. The patient was awakened and brought to recovery. Scope withdrawal time: 7 minutes Sedation time: 10 minutes EBL: 0 Findings: Normal colon Post-procedure Recommendations: Colonoscopy in 5 years Disposition: PACU
[2024-08-13 11:27] VITALS: BP 96/56; PULSE 63; RESP 16; TEMP 36.8; O2SAT 98
[2024-08-13 11:31] VITALS: BP 116/80; PULSE 76; RESP 16; O2SAT 96
[2024-08-13 11:36] VITALS: BP 119/81; PULSE 66; RESP 18; O2SAT 95
[2024-08-13 11:41] VITALS: BP 113/64; PULSE 64; RESP 14; O2SAT 96
== END 2024-08-13 11:53 | disposition home or self-care (01) ==
PROVIDERS: PCP Physician Assistant; Referring Provider Surgery; Visit Provider Surgery
PROC: 0DJD8ZZ Inspection of Lower Intestinal Tract, Via Natural or Artificial Opening Endoscopic (ICD-10-PCS; CPT 45378; principal; 2024-08-13 10:30)
DX: Z12.11 Encounter for screening for malignant neoplasm of colon (principal); Z86.0100 Personal history of colon polyps, unspecified; Z80.0 Family history of malignant neoplasm of digestive organs
CPT/HCPCS: G0105; J2704

== ENCOUNTER → 2024-10-14 10:43 | Outpatient (CLI) | payer MEDICARE, OTHER, SELFPAY ==
[2024-10-14 13:02] LABS: Prostate Specific Antigen 0.336 ng/mL (0.10-4.00)
== END ==
PROVIDERS: PCP Physician Assistant; Referring Provider Urology; Visit Provider Urology
DX: N40.1 Benign prostatic hyperplasia with lower urinary tract symptoms (principal); N13.8 Other obstructive and reflux uropathy
CPT/HCPCS: 36415; 84153

== ENCOUNTER 2024-12-31 09:22 | Outpatient (RCR) | payer MEDICARE, OTHER, SELFPAY ==
--- NOTE | 2024-12-31 17:18 | PT.OIE ---
Current Diagnoses Overactive bladder (12/31/24) Pelvic muscle wasting (12/31/24) Past Medical History (Last Reviewed 11/18/24 @ 12:26 by Wes Jarvis DO) Abdominal pain Achilles tendonosis of right lower extremity Arthritis Barretts esophagus BPH (benign prostatic hyperplasia) BPH w urinary obs/LUTS GERD (gastroesophageal reflux disease) Hematochezia Joint pain Obese Vertigo Weak urinary stream Past Surgical History (Last Reviewed 11/18/24 @ 12:26 by Wes Jarvis DO) H/O knee surgery History of colonoscopy (~2011) Visit Care Team Role Provider Type Pricila Fish PA-C Family Provider Advanced Supervisor Mill Primary Care Provider Specialty: Medical Address: [address] [place] [address], [address] Email: Wes Jarvis DO Attending Provider Physician Referring Provider Specialty: Urology Address: [address] [place] [address], [phone] Fax: Email: Physical Therapy Initial Evaluation PT-OP-A Visit Information Start: 12/30/24 13:35 Freq: Status: Active Protocol: Document 12/31/24 09:49 [facility] (Rec: 12/31/24 10:28 [facility] [id number]) Out-Patient Physical Therapy Visit Information Visit Information Visit Type Initial Evaluation Visit Start Time 09:50 Visit Stop Time 10:35 Visit Number 1 Evaluation Information Evaluation Date 12/31/24 PT-OP-B Current Condition Start: 12/30/24 13:35 Freq: Status: Active Protocol: Document 12/31/24 09:45 [facility] (Rec: 12/31/24 10:28 [facility] [id number]) Current Condition History of Current Condition Onset Date 10 years ago Current Complaints urge incontinence History of Current Condition pt notes he gets urgency and some times he will note he has a little bit of a squirt prior to getting to the bathroom. He has learned that he cant wait to void and often he does preventitive voiding. Running water and brushing his teeth are both triggers for leakage. HE voids every 3 hours during the day. In July he went on a cpap machine, Pt notes he was voiding 3-4 times per night but with the machine it is only 1-2 time per night. Urge incontinence is happening approx 1 time per day when he doesn't get there in time. He does have a enlarged prostate but his post void residual is good. He is taking flomax and he feels this really helps with his stream and ability to fully empty his bladder Treatment Goals Patient/Caregiver Goals Pts goals include eliminating urinary urge incontinence symptoms PT-OP-F Manual Assessment Start: 12/30/24 13:35 Freq: Status: Active Protocol: Document 12/31/24 09:45 [facility] (Rec: 12/31/24 17:05 [facility] [id number]) Manual Assessments Joint Mobility Assessment Joint Mobility Assessment hip tightness bilaterally with decreased mobility into supine hip flexion to 100 deg B PT-OP-I Pelvic Floor Start: 12/30/24 13:35 Freq: Status: Active Protocol: Document 12/31/24 09:45 [facility] (Rec: 12/31/24 17:05 [facility] [id number]) Pelvic Floor Assessment Urine Pelvic Floor Surgery No Urinary Symptoms Urge Sensation Other Urinary Symptoms urinary leakage if pt waits too long to void Leakage Size Small Leakage Cause Urge Leaks Per Day 2 Voiding Frequency every 2-3 hours Nocturia 1-2 Contraction Ability Voluntary Contraction Weak Comments Pelvic Floor Comments Nic has difficulty with isolation of the pelvic floor without gluteal contraction, we worked today on isolations and he was cued to keep gluteals from tiara PT-OP-M Strength Start: 12/30/24 13:35 Freq: Status: Active Protocol: Document 12/31/24 09:45 [facility] (Rec: 12/31/24 17:17 [facility] [id number]) Trunk Strength Trunk Manual Muscle Testing Testing Position Supine Core Stabilization decreased core stabilization and ability to isolate his pelvic floor without gluteal substitution PT-OP-Q Treatments Start: 12/30/24 13:35 Freq: Status: Active Protocol: Document 12/31/24 09:45 [facility] (Rec: 12/31/24 17:05 [facility] [id number]) Self-Care/Home Management Treatment Education Patient Education Home Exercise Program Other Education Nic was educated on bladder irritants and was educated on urge deference technique and pelvic floor facilitation without gluteal contraction PT-OP-T Assessment and Plan Start: 12/30/24 13:35 Freq: Status: Active Protocol: Document 12/31/24 09:45 [facility] (Rec: 12/31/24 17:05 [facility] [id number]) Physical Therapy Assessment Rehab Potential Rehabilitation Potential Excellent Evaluation Complexity Number of Personal Factors/Comorbidities 3 or More Number of Body Systems Impaired 3 Clinical Presentation at Evaluation Evolving Impairments Impairments Functional Activities,Strength Other Impairments urge incontinence with urinary leakage Goals 3 Impairment Poor fluid intake that can contribute to bladder irritation and urgency Short Term Goal (STG) Nic is educated on bladder irritants and encouraged to increase his water intake to flush out the bladder STG Duration 4 weeks 2 Impairment core and pelvic floor weakness with gluteal muscle substitution Awning Erector Goal (LTG) Nic is able to properly facilitate his pelvic floor muscles without gluteal subsititution LTG Duration 8 weeks 1 Impairment urinary urgency with urge incontinence happening 1-2 times per day Short Term Goal (STG) Nic is educated on the urge deference technique for bladder retraining to reduce urinary leakge STG Duration 4 weeks Awning Erector Goal (LTG) Nic reports a overall reduction in urinary leakage with urgency LTG Duration 8 weeks Assessment Summary Assessment Nic is a 69 year old male referred to PT with overactive bladder and chief complaint of urge incontinence with urgency. Nic reports that he was put on a C pap in July for sleep apnea and he feels overall this has really helped his sleep. Prior to the C pap he was waking to void 4 xms per night and now that is decreased to 1-2 times per night. He reports for the most part he is voiding every 2-3 hours however if he gets a urge to void he isn't always able to make it to the toilet on time and he will note a small amount of leakage when he is a few steps before the toilet. He does tend to void just in case due to this when he is planning outings. Running water and brushing his teeth are also triggers for urgency. With eval Nic presents with core weakness and tends to substitute with his gluteals when attempting a pelvic floor contraction. He has a history of Low back pain and presents with tightness of the lumbar paraspinals and hips. He was educated on bladder irritants and was educated in the urge deference technique. He felt encouraged about learning this technique and I also encouraged him to increase his water intake. He is currently drinking 2 cups of coffee and 4 glasses of water per day. Nic is a good candidate for PT Physical Therapy Plan Frequency and Duration Frequency of Treatment recheck in 3-4 weeks Duration of treatment (weeks) 8 Plan of Care Start Date 12/31/24 Plan of Care End Date 02/25/25 Therapeutic Interventions Therapeutic Interventions Home Exercise Program, Neuromuscular Re-education, Self-Care/Home Management, Therapeutic Exercises Other Therapeutic Interventions urge deference technique and bladder retraining Next Visit Focus/Plan Next Note Type Treatment Note Next Visit Plan review urge deference technique and pts ability to contract his pelvic floor without substitution, core stability exercises
--- NOTE | 2025-03-04 17:00 | PT.OPDS ---
Current Diagnoses Overactive bladder (12/31/24) Pelvic muscle wasting (12/31/24) Visit Care Team Role Provider Type Pricila Fish PA-C Family Provider Advanced Sales Relationship Manager Primary Care Provider Specialty: Medical Address: [address] [place] [address], [id number] Email: Wes Jarvis DO Attending Provider Physician Referring Provider Specialty: Urology Address: [address] [place] [address], [phone] Fax: Email: Visit Number Visit Number 1 Discharge Summary PT-OP-B Current Condition Start: 12/30/24 13:35 Freq: Status: Active Protocol: Document 12/31/24 09:45 [facility] (Rec: 12/31/24 10:28 [facility] [id number]) Current Condition History of Current Condition Onset Date 10 years ago Current Complaints urge incontinence History of Current pt notes he gets urgency and some times he will note he Condition has a little bit of a squirt prior to getting to the bathroom. He has learned that he cant wait to void and often he does preventitive voiding. Running water and brushing his teeth are both triggers for leakage. HE voids every 3 hours during the day. In July he went on a cpap machine, Pt notes he was voiding 3-4 times per night but with the machine it is only 1-2 time per night. Urge incontinence is happening approx 1 time per day when he doesn't get there in time . He does have a enlarged prostate but his post void residual is good. He is taking flomax and he feels this really helps with his stream and ability to fully empty his bladder Treatment Goals Patient/Caregiver Pts goals include eliminating urinary urge incontinence Goals symptoms PT-OP-F Manual Assessment Start: 12/30/24 13:35 Freq: Status: Active Protocol: Document 12/31/24 09:45 [facility] (Rec: 12/31/24 17:05 [facility] [id number]) Manual Assessments Joint Mobility Assessment Joint Mobility hip tightness bilaterally with decreased mobility into Assessment supine hip flexion to 100 deg B PT-OP-I Pelvic Floor Start: 12/30/24 13:35 Freq: Status: Active Protocol: Document 12/31/24 09:45 [facility] (Rec: 12/31/24 17:05 [facility] [id number]) Pelvic Floor Assessment Urine Pelvic Floor Surgery No Urinary Symptoms Urge Sensation Other Urinary urinary leakage if pt waits too long to void Symptoms Leakage Size Small Leakage Cause Urge Leaks Per Day 2 Voiding Frequency every 2-3 hours Nocturia 1-2 Contraction Ability Voluntary Weak Contraction Comments Pelvic Floor Nic has difficulty with isolation of the pelvic floor Comments without gluteal contraction, we worked today on isolations and he was cued to keep gluteals from tiara PT-OP-M Strength Start: 12/30/24 13:35 Freq: Status: Active Protocol: Document 12/31/24 09:45 [facility] (Rec: 12/31/24 17:17 [facility] [id number]) Trunk Strength Trunk Manual Muscle Testing Testing Position Supine Core Stabilization decreased core stabilization and ability to isolate his pelvic floor without gluteal substitution PT-OP-T Assessment and Plan Start: 12/30/24 13:35 Freq: Status: Active Protocol: Document 03/04/25 16:58 [facility] (Rec: 03/04/25 17:00 [facility] [id number]) Physical Therapy Assessment Goals 3 Impairment Poor fluid intake that can contribute to bladder irritation and urgency Short Term Goal (STG Nic is educated on bladder irritants and encouraged ) to increase his water intake to flush out the bladder goal met STG Duration 4 weeks 2 Impairment core and pelvic floor weakness with gluteal muscle substitution Nursing Home Goal (LTG) Nic is able to properly facilitate his pelvic floor muscles without gluteal subsititution LTG Duration 8 weeks 1 Impairment urinary urgency with urge incontinence happening 1-2 times per day Short Term Goal (STG Nic is educated on the urge deference technique for ) bladder retraining to reduce urinary leakge STG Duration 4 weeks Head Of Marketing Goal (LTG) Nic reports a overall reduction in urinary leakage with urgency LTG Duration 8 weeks Assessment Summary Assessment Nic was given a HEP at the time of his initial evaluation and educated on bladder irritants and urge deference technique. I placed a call to him to recheck how he is doing. He returned my call stating that he is doing fine now and is ready to DC PT. HE will be DC to a I [facility] Physical Therapy Plan Discharge Physical Therapy Discharge Reasons No Longer Attending PT Discharge Comments pt reports he is doing fine now and no longer needs any further PT
== END 2025-03-05 11:01 | disposition home or self-care (01) ==
LOC: PHYS 09:22
PROVIDERS: Family Provider Physician Assistant; PCP Physician Assistant; Referring Provider Urology; Visit Provider Urology
DX: N81.84 Pelvic muscle wasting (principal); N32.81 Overactive bladder
CPT/HCPCS: 97162; 97535